=== PATIENT | female | born 1975 | race Caucasian/White ===

== ENCOUNTER 2019-01-23 14:06 | Emergency (ER) | payer MEDICAID ==
[~2019-01-23] VITALS: Ht 167.6 cm; Wt 118.2 kg
[2019-01-23 14:10] VITALS: BP 124/86; Ht 167.6 cm; Wt 118.2 kg
[2019-01-23] MEDS ORDERED: GLUCOPHAGE1000 MG PO (14:14)
[2019-01-23] MEDS ORDERED: NEURONTIN 300300 MG PO (14:15)
[2019-01-23] MEDS ORDERED: GLYBURIDE5 M1 PO (14:15)
[2019-01-23 14:58] LABS: BASOPHILS 0.2 % (0-2); EOSINOPHILS 0.6 % (0-7); HEMATOCRIT 43.5 % (36.0-48.0); HEMOGLOBIN 15.4 g/dL (12-16); IMMATURE GRANULOCYTES 0.2 % (0-5); LYMPHOCYTES 16.4 % (15-50); MCH 28.9 pg (26.0-34.0); MCHC 35.4 g/dL (31.0-37.0); MCV 81.8 fL (80.0-100.0); MONOCYTES 5.5 % (2-11); NEUTROPHILS 77.1 % (40-80); PLATELET COUNT 353 10x3/uL (130-400); RBC 5.32 10x6/uL (4.00-5.40); RDW 13.6 % (11.5-14.5); WBC 8.5 10x3/uL (4.8-10.8)
[2019-01-23 15:03] LABS: UDS - AMPHET NEGATIVE QUAL (NEGATIVE); UDS - BARB NEGATIVE QUAL (NEGATIVE); UDS - BENZO NEGATIVE QUAL (NEGATIVE); UDS - COCAINE NEGATIVE QUAL (NEGATIVE); UDS - OPIATE NEGATIVE QUAL (NEGATIVE); UDS - PCP NEGATIVE QUAL (NEGATIVE); UDS - THC NEGATIVE QUAL (NEGATIVE)
[2019-01-23 15:08] LABS: APPEARANCE CLEAR (CLEAR); BILIRUBIN NEGATIVE (NEGATIVE); COLOR YELLOW (YELLOW); GLUCOSE 1000 mg/dL (NEGATIVE); HCG URINE NEGATIVE (NEGATIVE); KETONE LARGE mg/dL (NEGATIVE); NITRITE NEGATIVE (NEGATIVE); PROTEIN NEGATIVE (NEGATIVE); SPECIFIC GRAVITY 1.025 (1.005-1.020); UROBILINOGEN NORMAL (NORMAL)
[2019-01-23 15:12] LABS: ALBUMIN 3.4 g/dL (3.4-5.0); ALKALINE PHOSPHATASE 95 U/L (46-116); ALT (SGPT) 16 U/L (10-68); BILIRUBIN - TOTAL 0.95 mg/dL (0.2-1.3); CALC OSMOLALITY 288 mosm/kg (275-300); CALCIUM 8.7 mg/dL (8.5-10.1); CARBON DIOXIDE 24.6 mmol/L (21.0-32.0); CHLORIDE - SERUM 98 mmol/L (98-107); CREATININE - SERUM 0.8 mg/dL (0.6-1.3); MAGNESIUM - SERUM 1.8 mg/dL (1.8-2.4); POTASSIUM - SERUM 4.9 mmol/L (3.5-5.1); PROTEIN - SERUM 7.5 g/dL (6.4-8.2); SODIUM 133 mmol/L (136-145); UREA NITROGEN 21 mg/dL (7-18); eGFR NON AFRICAN AMERICAN 83 mL/min (90-120)
[2019-01-23 15:13] LABS: GLUCOSE 453 mg/dL (74-106)
== END 2019-01-23 18:21 | disposition home or self-care (01) ==
LOC: D.ER 14:06
PROVIDERS: Emergency Medicine
DX: E11.69 Type 2 diabetes mellitus with other specified complication (principal); F43.21 Adjustment disorder with depressed mood

== ENCOUNTER 2019-03-04 16:47 | Emergency (ER) | payer MEDICAID ==
[~2019-03-04] VITALS: Ht 167.6 cm; Wt 118.2 kg
[~2019-03-04 16:47] MED LIST: GLUCOPHAGE1000 MG PO; GLYBURIDE5 M1 PO; NEURONTIN 300300 MG PO
[2019-03-04 17:04] VITALS: Ht 167.6 cm; Wt 118.2 kg
[2019-03-04 17:36] LABS: BASOPHILS 0.4 % (0-2); EOSINOPHILS 1.3 % (0-7); HEMATOCRIT 41.3 % (36.0-48.0); HEMOGLOBIN 13.8 g/dL (12-16); IMMATURE GRANULOCYTES 0.1 % (0-5); LYMPHOCYTES 32.3 % (15-50); MCH 28.3 pg (26.0-34.0); MCHC 33.4 g/dL (31.0-37.0); MCV 84.8 fL (80.0-100.0); MEAN PLATELET VOLUME 9.4 fL (7.4-10.4); MONOCYTES 4.8 % (2-11); NEUTROPHILS 61.1 % (40-80); PLATELET COUNT 333 10x3/uL (130-400); RBC 4.87 10x6/uL (4.00-5.40); WBC 7.6 10x3/uL (4.8-10.8)
[2019-03-04 18:02] LABS: KETONE - SERUM NEGATIVE (NEGATIVE)
[2019-03-04 18:11] LABS: ALBUMIN 3.3 g/dL (3.4-5.0); ALKALINE PHOSPHATASE 99 U/L (46-116); ALT (SGPT) 17 U/L (10-68); BILIRUBIN - TOTAL 0.44 mg/dL (0.2-1.3); CALC OSMOLALITY 286 mosm/kg (275-300); CALCIUM 9.1 mg/dL (8.5-10.1); CARBON DIOXIDE 26.1 mmol/L (21.0-32.0); CHLORIDE - SERUM 102 mmol/L (98-107); CREATININE - SERUM 0.6 mg/dL (0.6-1.3); MAGNESIUM - SERUM 1.6 mg/dL (1.8-2.4); POTASSIUM - SERUM 4.5 mmol/L (3.5-5.1); SODIUM 138 mmol/L (136-145); UREA NITROGEN 9 mg/dL (7-18); eGFR NON AFRICAN AMERICAN > 90 mL/min (90-120)
[2019-03-04 18:14] LABS: GLUCOSE 312 mg/dL (74-106)
[2019-03-04] MEDS ORDERED: GLIMEPIRIDE4 MG PO (18:56)
[2019-03-04] MEDS ORDERED: GLUCOPHAGE1000 MG PO (18:56)
[2019-03-04 19:43] VITALS: BP 121/75
== END 2019-03-04 19:43 | disposition home or self-care (01) ==
LOC: D.ER 16:47
PROVIDERS: Family Medicine
DX: E11.65 Type 2 diabetes mellitus with hyperglycemia (principal)